=== PATIENT | female | born 1935 | race Caucasian/White ===

== ENCOUNTER → 2017-06-17 | Outpatient (CLI) | payer MEDICARE, OTHER ==
[~2017-06-17] MED LIST: ALLO100T30 PO; AMIO400T5 PO; ASPI-621 PO; ATOR10TA PO; ATOR40TA PO; CHOL500050 PO; DOCU-131 PO; ENAL20TA PO; ENAL20TA68 PO; FURO-93 PO; HYDR-3307 PO; HYDR25TA6 PO; METF500T4 PO; METO25TA2 PO; POTA10TA5 PO; WARF5TAB7 PO-COUM
== END | disposition home or self-care (01) ==
LOC: PETCFH 10:14
PROVIDERS: ATTEND Internal Medicine Cardiovascular Disease
DX: I35.0 Nonrheumatic aortic (valve) stenosis (principal)
CPT/HCPCS: 78472; A9560